=== PATIENT | female | born 1975 | race Caucasian/White ===

== ENCOUNTER → 2020-07-08 | Day surgery (SDC) | payer BC ==
[~2020-07-08] MED LIST: Bupivacaine 0.5% 30 ML SDV ONE; Lactated Ringers 1,000 ML IV SCH; Lidocaine 1% 4 ML ONE; Lidocaine 1% with EPINEPHrine 1:100,000 20 ML MDV ONE; Lidocaine 1%/Sod Bicarbonate in NS 8.4% 1 ML Syringe IDERM PRN; Midazolam 1 MG/ML 2 ML SDV ONE; Ondansetron 4 MG/2 ML SDV ONE; Propofol 200 MG/20 ML SDV ONE; Rocuronium 50 MG/5 ML Vial ONE; Sodium Chloride 0.9% 10 ML Syringe FLUSH PRN; Sodium Chloride 0.9% 50 ML SDV ONE; fentaNYL 250 MCG/5 ML SDV ONE
--- NOTE | 2020-07-08 07:47 | PCM.PREANE ---
Preanesthetic Assessment - Procedure Proposed Procedure: lap assisted vag hysterectomy with BSO - Anesthesia/Transfusion/Family Hx Anesthesia History: Prior Anesthesia Without Reaction Family History of Anesthesia Reaction: No Transfusion History: No Prior Transfusion(s) - Review of Systems General: No Symptoms Pulmonary: Wheezing (with allergies- singulair and prn albuteral) Cardiovascular: No Symptoms Gastrointestinal: No Symptoms Neurological: No Symptoms Other: Reports: Depression - Physical Assessment NPO Status Date: 07/07/20 NPO Status Time: 19:00 Vital Signs: 103 95% 98.0 20 Height: 5 ft 4 in Weight: 93 kg ASA Class: 2 Mental Status: Alert & Oriented x3 Airway Class: Mallampati = 1 Dentition: Reports: Normal Dentition Thyro-Mental Finger Breadths: 3 Mouth Opening Finger Breadths: 3 ROM/Head Extension: Full Lungs: Clear to Auscultation, Normal Respiratory Effort Cardiovascular: Regular Rate, Regular Rhythm - Allergies Allergies/Adverse Reactions: Allergies Allergy/AdvReac Type Severity Reaction Status Date / Time chlorhexidine Allergy Rash Verified 07/07/20 13:35 - Blood Blood Available: Yes - Acknowledgements Anesthesia Type Planned: General Anesthesia Pt an Appropriate Candidate for the Planned Anesthesia: Yes Alternatives and Risks of Anesthesia Discussed w Pt/Guardian: Yes Pt/Guardian Understands and Agrees with Anesthesia Plan: Yes PreAnesthesia Questionnaire HEENT History: Reports: Other (See Below) (wears glasses) Cardiovascular History: Reports: 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) Respiratory History: Reports: Other (See Below) (allergic rhinitis) Gastrointestinal History: Reports: None Psychiatric History: Reports: Depression Endocrine/Metabolic History: Reports: Obesity/BMI 30+ Oncologic (Cancer) History: Reports: Breast - Past Surgical History GI Surgical History: Reports: Other (See Below) (breast lumpectomy) Female Surgical History: Reports: Breast Reduction, Other (See Below) (nel cath) - SUBSTANCE USE Tobacco Use Status *Q: Former Tobacco User Tobacco Use Within Last Twelve Months: Cigarettes Second Hand Smoke Exposure: No Days Per Week of Alcohol Use: 0 Recreational Drug Use History: No - HOME MEDS Home Medications: Home Meds Albuterol Sulfate [Proventil Hfa] 2 puff INH Q4H PRN 07/07/20 [History] Calcium Carb/Vitamin D3/Vit K1 [Calcium + D Soft Chewable Tab] 1 tab PO DAILY 07/07/20 [History] Montelukast Sodium [Singulair] 10 mg PO DAILY 07/07/20 [History] Oxybutynin Chloride [Ditropan Xl] 10 mg PO DAILY 07/07/20 [History] Vits #93/Iron Fum/FA [ Formula Tablet] 1 tab PO DAILY 07/07/20 [History] Tamoxifen Citrate 20 mg PO DAILY 07/07/20 [History] Venlafaxine [Effexor] 75 mg PO BID 07/07/20 [History] buPROPion HCL [Wellbutrin Xl] 300 mg PO DAILY 07/07/20 [History] diphenhydrAMINE [Benadryl] 50 mg PO ASDIRECTED PRN 07/07/20 [History] - CURRENT (IN HOUSE) MEDS Current Meds: Current Medications Lactated Ringer's (Ringers, Lactated) 1,000 mls @ 125 mls/hr IV ASDIRECTED CARIDAD Stop: 07/08/20 23:00 Lidocaine/Sodium Bicarbonate (Buffered Lidocaine 1% In Ns 8.4%) 0.25 ml IDERM ONETIME PRN PRN Reason: Prior to IV Start Stop: 07/08/20 18:00 Sodium Chloride (Saline Flush) 10 ml FLUSH ASDIRECTED PRN PRN Reason: Keep Vein Open Stop: 07/08/20 18:00 Discontinued Medications Fentanyl (Sublimaze) Confirm Administered Dose 250 mcg .ROUTE .STK-MED ONE Stop: 07/08/20 06:57 Lidocaine HCl (Xylocaine-Mpf 1%) Confirm Administered Dose 4 mls @ as directed .ROUTE .STK-MED ONE Stop: 07/08/20 06:57 Midazolam HCl (Versed 1 Mg/Ml) Confirm Administered Dose 2 mg .ROUTE .STK-MED ONE Stop: 07/08/20 06:57 Ondansetron HCl (Zofran) Confirm Administered Dose 4 mg .ROUTE .STK-MED ONE Stop: 07/08/20 06:57 Propofol (Diprivan 20 Ml) Confirm Administered Dose 200 mg .ROUTE .STK-MED ONE Stop: 07/08/20 06:57 Rocuronium [place] (Zemuron) Confirm Administered Dose 50 mg .ROUTE .STK-MED ONE Stop: 07/08/20 06:57
== END ==
LOC: JD.SDS 07:41
PROVIDERS: ATTEND Obstetrics & Gynecology
DX: I10 Essential (primary) hypertension (principal); Z53.09 Procedure and treatment not carried out because of other contraindication; F32.9 Major depressive disorder, single episode, unspecified; E66.9 Obesity, unspecified; Z98.890 Other specified postprocedural states; Z79.899 Other long term (current) drug therapy; Z88.8 Allergy status to other drugs, medicaments and biological substances; Z87.891 Personal history of nicotine dependence; Z68.35 Body mass index [BMI] 35.0-35.9, adult
CPT/HCPCS: 36415; 80051; 85025; 86850; 86900; 86901; J2001; J2405; J3490; J2250; J2704; J3010

== ENCOUNTER 2020-09-04 07:27 | Day surgery (SDC) | payer BC ==
[2020-09-04] MEDS ORDERED: Lidocaine 1%/Sod Bicarbonate in NS 8.4% 1 ML Syringe IDERM PRN (07:53)
[2020-09-04] MEDS ORDERED: Sodium Chloride 0.9% 10 ML Syringe FLUSH PRN (07:53)
[2020-09-04] MEDS ORDERED: Lactated Ringers 1,000 ML IV SCH (08:00)
[2020-09-04] MEDS ORDERED: Bupivacaine 0.5% 30 ML SDV ONE (08:23)
[2020-09-04] MEDS ORDERED: Sodium Chloride 0.9% 50 ML SDV ONE (08:23)
[2020-09-04] MEDS ORDERED: Lidocaine 1% with EPINEPHrine 1:100,000 20 ML MDV ONE (08:23)
[2020-09-04] MEDS ORDERED: Ondansetron 4 MG/2 ML SDV IVPUSH PRN (08:51)
[2020-09-04] MEDS ORDERED: fentaNYL 100 MCG/2 ML SDV IVPUSH PRN (08:51)
[2020-09-04] MEDS ORDERED: HYDROmorphone 0.5 MG/0.5 ML Syringe IVPUSH PRN (08:51)
--- NOTE | 2020-09-04 08:51 | PCM.PREANE ---
Preanesthetic Assessment - Procedure Proposed Procedure: Vaginal Hysterectomy subfascial midurethral sling - Anesthesia/Transfusion/Family Hx Anesthesia History: Prior Anesthesia Without Reaction Family History of Anesthesia Reaction: No Transfusion History: No Prior Transfusion(s) - Review of Systems General: No Symptoms Pulmonary: Cough (Rhinitis/Allergies, denies SOB. Quit smoking 6 months ago. ) Cardiovascular: Other (Hypertension, controlled with Lisinopril. ) Gastrointestinal: No Symptoms Neurological: No Symptoms Other: Reports: None (NO BP or IV on the right side. Status post mastectomy with lymph node disection. History of chemotherapy. ), Depression - Physical Assessment NPO Status Date: 09/03/20 NPO Status Time: 23:00 Vital Signs: Last Vital Signs Temp 36.1 C 09/04/20 07:35 Pulse 100 09/04/20 07:45 Resp 16 09/04/20 07:35 BP 131/86 09/04/20 07:45 Pulse Ox 98 09/04/20 07:35 Height: 1.63 m Weight: 95.254 kg ASA Class: 2 Mental Status: Alert & Oriented x3 Airway Class: Mallampati = 2 Dentition: Reports: Normal Dentition Thyro-Mental Finger Breadths: 2 Mouth Opening Finger Breadths: 3 ROM/Head Extension: Full Lungs: Clear to Auscultation, Normal Respiratory Effort Cardiovascular: Regular Rate, Regular Rhythm - Allergies Allergies/Adverse Reactions: Allergies Allergy/AdvReac Type Severity Reaction Status Date / Time chlorhexidine Allergy Rash Verified 09/04/20 08:31 - Blood Blood Available: Yes Product(s) Available: PRBC (Type and Screen) - Anesthesia Plan Pre-Op Medication Ordered: Anxiolytic - Acknowledgements Anesthesia Type Planned: General Anesthesia Pt an Appropriate Candidate for the Planned Anesthesia: Yes Alternatives and Risks of Anesthesia Discussed w Pt/Guardian: Yes Pt/Guardian Understands and Agrees with Anesthesia Plan: Yes PreAnesthesia Questionnaire HEENT History: Reports: Other (See Below) (wears glasses) Cardiovascular History: Reports: 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) Respiratory History: Reports: Other (See Below) (allergic rhinitis) Gastrointestinal History: Reports: None Psychiatric History: Reports: Depression Endocrine/Metabolic History: Reports: Obesity/BMI 30+ Oncologic (Cancer) History: Reports: Breast - Past Surgical History GI Surgical History: Reports: Other (See Below) (breast lumpectomy) Female Surgical History: Reports: Breast Reduction, Other (See Below) (nel cath) - HOME MEDS Home Medications: Home Meds Albuterol Sulfate [Proventil Hfa] 2 puff INH Q4H PRN 07/07/20 [History] Calcium Carb/Vitamin D3/Vit K1 [Calcium + D Soft Chewable Tab] 1 tab PO DAILY 07/07/20 [History] Montelukast Sodium [Singulair] 10 mg PO DAILY 07/07/20 [History] Vits #93/Iron Fum/FA [ Formula Tablet] 1 tab PO DAILY 07/07/20 [History] Tamoxifen Citrate 20 mg PO DAILY 07/07/20 [History] Venlafaxine [Effexor] 75 mg PO BID 07/07/20 [History] buPROPion HCL [Wellbutrin Xl] 300 mg PO DAILY 07/07/20 [History] diphenhydrAMINE [Benadryl] 50 mg PO ASDIRECTED PRN 07/07/20 [History] lisinopriL [Lisinopril] 40 mg PO DAILY 09/04/20 [History] - CURRENT (IN HOUSE) MEDS Current Meds: Current Medications Lactated Ringer's (Ringers, Lactated) 1,000 mls @ 125 mls/hr IV ASDIRECTED CARIDAD Stop: 09/04/20 23:00 Last Admin: 09/04/20 08:10 Dose: 125 mls/hr Documented by: Lidocaine/Sodium Bicarbonate (Buffered Lidocaine 1% In Ns 8.4%) 0.25 ml IDERM ONETIME PRN PRN Reason: Prior to IV Start Stop: 09/04/20 18:00 Last Admin: 09/04/20 08:10 Dose: 0.25 ml Documented by: Sodium Chloride (Saline Flush) 10 ml FLUSH ASDIRECTED PRN PRN Reason: Keep Vein Open Stop: 09/04/20 18:00 Discontinued Medications Bupivacaine HCl (Marcaine 0.5%) Confirm Administered Dose 30 ml .ROUTE .STK-MED ONE Stop: 09/04/20 08:24 Lidocaine/Epinephrine (Xylocaine 1% With Epinephrine 1:100,000) Confirm Administered Dose 20 ml .ROUTE .STK-MED ONE Stop: 09/04/20 08:24 Sodium Chloride (Normal Saline) Confirm Administered Dose 50 ml .ROUTE .STK-[facility] ONE Stop: 09/04/20 08:24
[2020-09-04] MEDS ORDERED: ceFAZolin 1 GM Vial ONE (08:53)
[2020-09-04] MEDS ORDERED: Lactated Ringers 1,000 ML ONE (08:53)
[2020-09-04] MEDS ORDERED: Rocuronium 50 MG/5 ML Vial ONE (08:53)
[2020-09-04] MEDS ORDERED: Lidocaine 1% 4 ML ONE (08:53)
[2020-09-04] MEDS ORDERED: Ondansetron 4 MG/2 ML SDV ONE ×2 (08:53→09:22)
[2020-09-04] MEDS ORDERED: fentaNYL 250 MCG/5 ML SDV ONE (08:54)
[2020-09-04] MEDS ORDERED: Propofol 200 MG/20 ML SDV ONE ×2 (08:54→10:09)
[2020-09-04] MEDS ORDERED: Midazolam 1 MG/ML 2 ML SDV ONE (08:54)
[2020-09-04] MEDS ORDERED: Dexamethasone 4 MG/ML 5 ML MDV ONE (09:22)
[2020-09-04] MEDS ORDERED: Ketamine 500 mg/10 ML MDV ONE (09:46)
[2020-09-04] MEDS ORDERED: Albuterol 6.7 GM Inhaler INH ONE (10:51)
--- NOTE | 2020-09-04 11:01 | PCM.OPNOTE ---
- General Post-Op/Procedure Note Date of Surgery/Procedure: 09/04/20 Operative Procedure(s): Laparoscopic assisted vaginal hysterectomy with bilateral salpingo oophorectomy. Findings: Normal pelvic anatomy, small paratubal cyst Pre Op Diagnosis: breast cancer, menorrhagia, stress incontinence Post-Op Diagnosis: Same Anesthesia Technique: General ET Tube Primary Surgeon: Reyna Rincon Anesthesia Provider: Michelle Chaney Electrician: Juarez Vergara Pathology: uterus, tubes and ovaries Fluid Replacement, Intraop: 1,800 Output, Urine Amount: 75 EBL in mLs: 200 Complications: None Condition: Good Free Text/Narrative:: The risks, benefits, indications, potential complications, and alternatives were explained to the patient and informed consent obtained. The patient was taken to the Operating Room where general anesthesia was induced without complication. The patient was placed in dorsal lithotomy with Swapnil Stirrups and an exam under anesthesia revealed the findings detailed above. The patient was then prepped and draped in the usual sterile fashion. A sterile bivalve speculum was placed into the vagina and the anterior lip of the cervix was grasped with a single tooth tenaculum and a [employer] uterine manipulator was placed to allow uterine manipulation throughout the procedure. The speculum and single tooth tenaculum were removed from the vagina. A Egan catheter was placed in sterile fashion. Attention was then turned to the patients abdomen where a Veress needle was carefully introduced into the peritoneal cavity while tenting the abdominal wall. Intraperitoneal placement was confirmed by free flow of saline into the abdomen from a syringe open to gravity and with a low intraabdominal pressure with insufflation of C02 gas on low flow. The gas was increased to high flow and a pneumoperitoneum was obtained with C02 gas to a pressure of 15 mm Hg. A 5 mm skin incision was made in a vertical fashion in the umbilical fold and a 5 mm b eleonora trocar was inserted into the abdomen with direct visualization of the laparoscope through the clear view trocar lens. 5 mm skin incisions were made in both the left and right lower quadrants approximately 10 cm lateral and 3 cm inferior to the umbilicus. 5 mm blunt trocars were inserted into the abdomen under direct visualization with care to avoid the abdominal wall vasculature. A blunt probe and grasper were inserted through the accessory ports and a survey of the abdomen revealed the findings detailed above. The right fallopian tube was elevated with the blunt graspers at the fimbriated end. The right ureter was directly visualized and noted to be below the planned dissection area. The Ligasure was used to grasp, elevate, cauterize and transect uteroovarian and tube toward the uterus to the level of the round ligament. The round ligament on the right was then elevated, cauterized, and transected with the Ligasure. Hemostasis was noted. Next, the vesicouterine peritoneum was elevated gently with a blunt grasper and the ligasure were used dissect the vesicouterine peritoneum to make a bladder flap. Two more small bites along the right side of the uterus were made with the Ligasure to skeletonize the uterine artery. Hemostasis was noted. The exact same procedure was carried out on the left adnexa starting with grasping the left fallopian tube by the fimbriated end and identifying the left ureter position. Next, the Ligasure was used to grasp, cauterize, and transect utero ovarian and tube to the level of the round ligament. Next, the left round ligament was elevated, cauterized, and transected and a couple of additional small bites on the left side of the uterus were made to help skeletonize the left uterine artery. Hemostasis as noted. The CO2 gas was turned off and the laparoscope was removed. Attention was then turned to the vaginal portion of the procedure. A short weighted speculum was placed in the vagina, and the cervix was grasped with a double-toothed tenaculums. The cervix was injected circumferentially with 10 ml of 0.25% lidocaine with epinepherine. The cervix was then circumferentially incised with a scalpel. A Raytec was used to bluntly dissect the cervix circumferentially until an avascular plane was obtained. The posterior cul-de-sac was entered sharply without difficulty. The short weighted speculum was replaced by the long weighted speculum. The uterosacral ligaments were grasped on either side, transected, suture ligated on the left side. On the right this was carried out with ligasure. Hemostasis was assured. The bladder was dissected off the pubovesical cervical fascia anteriorly with a sponge and blunt dissection. Bites taken bilaterally with ligasure travelling superior on either side. The anteiror cul-de-sac was then entered sharply without difficulty. The cardinal ligaments were then serially clamped on both sides, transected ligated with ligasure in similar fashion. The uterine arteries were then clamped, transected and suture ligated on both sides with 0-Vicryl sutures. Hemostasis was then noted. The fundus and adnexa were confirmed to be free of any further peritoneal attachments and then were pulled out through the vagina. Posterior cuff run and locked with 0 vicryl. The vaginal cuff was closed with a 0-Vicryl in a running locked fashion. Hemostasis was noted. See Dr Vergara's note for mid urethral sling. Attention was then again turned to the abdomen. All members of the surgical team changed gloves. The laparoscope was again inserted and the abdomen was again insufflated with CO2. The pedicles were again visualized. Irrigation of the pedicles was performed.Hemostasis was confirmed. The patient was taken out of Trendelenberg position. The accessory trocars were removed under direct visualization. The pneumoperitoneum was allowed to escape. The umbilical trocar was removed and lastly the camera was removed from the abdomen under direct visualization to confirm no herniation into the port site. All skin incisions were re-approximated with 4-0 Monocryl and sealed with Dermabond. Hemostasis was noted. All sponge, lap, needle, and instrument counts were correct x 2. The patient tolerated the procedure well and there were no complications.
--- NOTE | 2020-09-04 11:01 | PCM.OPNOTE ---
- General Post-Op/Procedure Note Date of Surgery/Procedure: 09/04/20 Operative Procedure(s): Subfascial mid urethral sling Findings: Patient has a grade 1 cystocele, grade 1 uterine descensus and lateral vaginal wall relaxation. Patient underwent a laparoscopic-assisted vaginal hysterectomy with bilateral salpingo-oophorectomy for history of breast cancer-prophylactic removal of the ovaries. The bladder sling was done after the hysterectomy had been performed. Pre Op Diagnosis: 1. Stress urinary incontinence. 2. Grade 1 cystocele Post-Op Diagnosis: Same Anesthesia Technique: General ET Tube Other Anesthesia Type: Lidocaine quarter percent with [id number] cc total Primary Surgeon: Juarez Vergara Secondary Surgeon: Reyna Rincon Anesthesia Provider: Michelle Chaney Reason Traveling Accountant Was Necessary: Retraction, assistance, patient safety, quality of care. Drain/Tube Comments:: Red rubber catheter was used to empty the bladder before the procedure and then refill the bladder after the procedure. Complications: None Condition: Good Free Text/Narrative:: Procedure: The patient was taken the operating room and placed in supine position on the operating table. She was adequately consented for the procedure. She was scheduled for and underwent an LAVH with BSO prior to the TVT procedure. Dr. Rincon was primary surgery for that procedure. With that procedure the patient was given 2 g of Ancef preoperatively for infection prophylaxis and had sequential compression stockings in place for DVT prophylaxis. She had voided mason tender to the operating room. She was given general endotracheal anesthesia. She was placed in the dorsal lithotomy position. To the LAVH with BSO the patient's bladder was drained with a red rubber catheter. The 5 cc of normal urine were removed. The epithelium overlying the urethra was grasped approximately 1 cm from the urethral meatus and approximately 2 cm cephalad from there with Allis clamps. The area of the skin overlying the medial aspect of the obturator foramen on each side just posterior to the origin the abductor longus muscle was marked with a marking pen. These 2 areas and the sub-fascial layer of the vaginal were then infiltrated with lidocaine quarter percent with epinephrine total of approximately 10 mL was used. incisions made in the epithelium overlying the urethra and 2 small stab wounds 3 mm in length were made in the 2 areas of the panty line of the patient. The subfascial planes were adequately dissected bilaterally to allow placement of the mesh. The helical adapter was then placed through the obturator on patient's left side, then brought out through the vaginal subfascial plane. Mesh was attached to it and then was pulled back through the obturator foramen. Same was done on the right side. Mesh was then snugged up to the Dilator which was 15 mm in diameter which was was used as a spacer to place the mesh in a tension- free position. At this point the mesh was cut off at the skin surface and the dilator was removed. The midline epithelium was closed with a short running suture of 3-0 Monocryl. Skin incisions were closed with Dermabond skin glue. These bladder was filled with approximately 250 cc of normal saline to facilitate voiding and therefore discharge home. Dr. Rincon looked laparoscopically and after the LAVH with BSO procedure to ensure hemostasis. This was ensured. The patient was returned to supine position, awakened from general endotracheal anesthesia and was discharged from operating room in good condition
[2020-09-04] MEDS ORDERED: Ketorolac 15 MG/ML SDV ONE (11:11)
--- NOTE | 2020-09-04 11:16 | PCM.POSTAN ---
POST ANESTHESIA ASSESSMENT - MENTAL STATUS Mental Status: Alert, Oriented - VITAL SIGNS Vital Signs: Last Vital Signs Temp 36.1 C 09/04/20 11:05 Pulse 100 09/04/20 07:45 Resp 17 09/04/20 11:05 BP 157/113 H 09/04/20 11:05 Pulse Ox 100 09/04/20 11:05 - RESPIRATORY Respiratory Status: Respiratory Rate WNL, Airway Patent, O2 Saturation Stable, Supplemental Oxygen - CARDIOVASCULAR CV Status: Pulse Rate WNL, Blood Pressure Stable - GASTROINTESTINAL GI Status: No Symptoms - PAIN Pain Score: 0 - POST OP HYDRATION Hydration Status: Adequate & Stable
[2020-09-04] MEDS ORDERED: Acetaminophen/oxyCODONE 325-5 MG Tab PO PRN (12:14)
--- NOTE | 2020-09-04 14:24 | PCM48HPAN ---
Post Anesthesia Note - EVALUATION WITHIN 48HRS OF ANESTHETIC Vital Signs in Normal Range: Yes Patient Participated in Evaluation: Yes Respiratory Function Stable: Yes Airway Patent: Yes Cardiovascular Function Stable: Yes Hydration Status Stable: Yes Pain Control Satisfactory: Yes Nausea and Vomiting Control Satisfactory: Yes Mental Status Recovered: Yes Vital Signs: Last Vital Signs Temp 36.1 C 09/04/20 11:05 Pulse 113 H 09/04/20 14:05 Resp 18 09/04/20 14:05 BP 134/83 09/04/20 14:05 Pulse Ox 98 09/04/20 14:05
== END 2020-09-04 15:30 | disposition home or self-care (01) ==
LOC: JD.SDS 07:27
PROVIDERS: ATTEND Obstetrics & Gynecology
DX: D25.9 Leiomyoma of uterus, unspecified (principal); N84.0 Polyp of corpus uteri; N80.0 Endometriosis of uterus; N83.8 Other noninflammatory disorders of ovary, fallopian tube and broad ligament; C50.919 Malignant neoplasm of unspecified site of unspecified female breast; N39.3 Stress incontinence (female) (male); I10 Essential (primary) hypertension; J45.909 Unspecified asthma, uncomplicated; E66.9 Obesity, unspecified; Z01.812 Encounter for preprocedural laboratory examination; Z20.828 Contact with and (suspected) exposure to other viral communicable diseases; Z88.8 Allergy status to other drugs, medicaments and biological substances; Z79.899 Other long term (current) drug therapy; Z98.890 Other specified postprocedural states; Z87.891 Personal history of nicotine dependence; Z68.36 Body mass index [BMI] 36.0-36.9, adult
CPT/HCPCS: 36415; 58552; 86850; 86900; 86901; A9270; J0690; J1100; J1170; J1885; J2001; J2250; J2405; J2704; J3010; J3490; J7120; 00944; C1771

== ENCOUNTER 2020-09-05 18:26 | Emergency (ER) | payer BC ==
[2020-09-05] MEDS ORDERED: Acetaminophen/oxyCODONE 325-5 MG Tab PO ONE (19:29)
--- NOTE | 2020-09-05 21:01 | EDM.PDOC ---
ED HPI GENERAL MEDICAL PROBLEM - General Chief Complaint: Wound Recheck Stated Complaint: POST SURGERY COMPLICATIONS/FLUID DRAINING Time Seen by Provider: 09/05/20 18:33 Source of Information: Reports: Patient, RN Notes Reviewed History Limitations: Reports: No Limitations - History of Present Illness INITIAL COMMENTS - FREE TEXT/NARRATIVE: Patient is a 45-year-old female presenting to the emergency department with complaints of drainage from her surgical incision. She had surgery yesterday with Dr. Vergara and Dr. Curry. They had a Laparoscopic assisted vaginal hysterectomy with bilateral salpingectomy as well as a bladder sling for repair of a cystocele. Patient states that today she awoke from a nap and had significant serosanguineous drainage from her left lower laparoscopic incision. She spoke with Dr. Curry who recommended she come to the emergency department as there is concern that this could possibly be urine. Patient denies any increased pain. Other than the drainage, states she is doing quite well postop. Lower Abdomen Pain Score (Numeric/FACES): 2 - Related Data Allergies Allergy/AdvReac Type Severity Reaction Status Date / Time chlorhexidine Allergy Rash Verified 09/04/20 08:31 Home Meds: Home Meds Albuterol Sulfate [Proventil Hfa] 2 puff INH Q4H PRN 07/07/20 [History] Calcium Carb/Vitamin D3/Vit K1 [Calcium + D Soft Chewable Tab] 1 tab PO DAILY 07/07/20 [History] Montelukast Sodium [Singulair] 10 mg PO DAILY 07/07/20 [History] Vits #93/Iron Fum/FA [ Formula Tablet] 1 tab PO DAILY 07/07/20 [History] Tamoxifen Citrate 20 mg PO DAILY 07/07/20 [History] Venlafaxine [Effexor] 75 mg PO BID 07/07/20 [History] buPROPion HCL [Wellbutrin Xl] 300 mg PO DAILY 07/07/20 [History] diphenhydrAMINE [Benadryl] 50 mg PO ASDIRECTED PRN 07/07/20 [History] lisinopriL [Lisinopril] 40 mg PO DAILY 09/04/20 [History] Past Medical History HEENT History: Reports: Other (See Below) Cardiovascular History: Reports: Heart Murmur Respiratory History: Reports: Other (See Below) Gastrointestinal History: Reports: None 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 History: Reports: Other (See Below) Other 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 History: hysterectomy, bladder sling Psychiatric History: Reports: Depression Endocrine/Metabolic History: Reports: Obesity/BMI 30+ Oncologic (Cancer) History: Reports: Breast - Past Surgical History GI Surgical History: Reports: Other (See Below) Female Surgical History: Reports: Breast Reduction, Other (See Below) Other Female Surgeries/Procedures: lumpectomy, port placement Social & Family History - Tobacco Use Tobacco Use Status *Q: Never Tobacco User Second Hand Smoke Exposure: No - Caffeine Use Caffeine Use: Reports: None - Recreational Drug Use Recreational Drug Use: No ED ROS GENERAL - Review of Systems Review Of Systems: See Below Constitutional: Reports: No Symptoms. Denies: Fever, Chills, Weakness HEENT: Reports: No Symptoms Respiratory: Reports: No Symptoms Cardiovascular: Reports: No Symptoms Endocrine: Reports: No Symptoms GI/Abdominal: Reports: Abdominal Pain, Other (drainage from LLQ abdominal incision). Denies: Diarrhea, Nausea, Vomiting ED EXAM, GENERAL - Physical Exam Exam: See Below Exam Limited By: No Limitations General Appearance: Alert, WD/WN, No Apparent Distress Respiratory/Chest: No Respiratory Distress, Lungs Clear, Normal Breath Sounds, No Accessory Muscle Use, Chest Non-Tender Cardiovascular: Normal Peripheral Pulses, Regular Rate, Rhythm, No Edema, No Gallop, No JVD, No Murmur, No Rub GI/Abdominal: Normal Bowel Sounds, Soft, Non-Tender, No Organomegaly, No Distention, No Abnormal Bruit, No Mass, Pelvis Stable, Other (3 laproscopic surgical incisions to abdomen. Incision to LLQ is open and draininge a moderate amount of serosanguinous fliud. Remaining incisions to the umbilicus and RLQ well approximated. ) Neurological: Alert, Oriented, CN II-XII Intact, Normal Cognition, Normal Gait, Normal Reflexes, No Motor/Sensory Deficits Psychiatric: Normal Affect, Normal Mood Skin Exam: Warm, Dry, Intact, Normal Color, No Rash Course - Vital Signs Last Recorded V/S: Last Vital Signs Temp 96.9 F 09/05/20 18:34 Pulse Resp 16 09/05/20 18:34 BP 117/78 09/05/20 18:34 Pulse Ox - Orders/Labs/Meds Labs: Laboratory Tests 09/05/20 09/05/20 09/05/20 Range/Units 18:45 18:45 20:27 Urine Color Yellow (Yellow) Urine Appearance Clear (Clear) Urine pH 6.0 (5.0-8.0) Ur Specific [place] 1.020 (1.005-1.030) Urine Protein Negative (Negative) Urine Glucose (UA) Negative (Negative) Urine Ketones Negative (Negative) Urine Occult Blood 2+ H (Negative) Urine Nitrite Negative (Negative) Urine Bilirubin Negative (Negative) Urine Urobilinogen 0.2 (0.2-1.0) Ur Leukocyte Esterase Trace H (Negative) Urine RBC 0-5 (0-5) /hpf Urine WBC 5-10 H (0-5) /hpf Ur Squamous Epith Cells 5-10 H (0-5) /hpf Urine Bacteria Few (FEW) /hpf Urine Mucus Few (FEW) /hpf Ur Random Creatinine 104.4 < 13.0 L (30.0-125.0) mg/dL Meds: Medications Discontinued Medications Generic Name Dose Route Start Last Admin Trade Name Freq PRN Reason Stop Dose Admin Oxycodone/Acetaminophen 1 tab 09/05/20 19:29 09/05/20 19:34 Percocet 325-5 Mg PO 09/05/20 19:30 1 tab ONETIME ONE Administration - Re-Assessments/Exams Free Text/Narrative Re-Assessment/Exam: Patient is a 45-year-old female presenting to the emergency department with complaints of serosanguineous drainage from her left lower laparoscopic incision after having a laparoscopic assisted vaginal hysterectomy as well as bladder sling done yesterday with Dr. Vergara and Dr. Curry. Patient spoke with Dr. West Klein prior to coming to the ER and states that there was some concern that this could be urine. Called and spoke with Dr. Vergara, who is the on-call 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. He recommended that we order a urinalysis with urine creatinine as well as attempt to collect a sample of the fluid draining from the incision site and run a urine creatinine on this as well. He also requests a abdominal ultrasound to be completed. I have applied a U bag to the draining incision site to attempt to collect the fluid. Patient has voided for us. I will order a abdominal ultrasound. plan will be to update Dr. Vergara once results are available. 09/05/20 21:23 Urinalysis was significant for 2+ occult blood, trace leukocyte esterase, 5-10 WBCs, and 5-10 squamous epithelial cells. It is likely that this is contamina tion. I have sent it for a urine culture. Random urine creatinine off of her clean-catch urine sample was 104.4. Urine creatinine off the drainage from the surgical site is less than 13 again this is not urine draining from the incision site. Impression of the transabdominal ultrasound is as follows 1. Small amount of free fluid in the pelvis, quantity top limits of normal. This may or may not be physiologic. 2. Scanning over the left lower quadrant revealed a tiny subcutaneous anechoic collection 1 x 3 mm and a 5.6 x 0.6 cm fluid collection in the deeper soft tissues. This fluid is nonspecific in etiology. Called and discussed results with Dr. Vergara. He recommends discharge home and for her to take it easy for the next few days. He would like her to follow-up in the clinic next week. We will apply dressing to the draining incision site and send her home with additional gauze. Discharge instructions as documented. Departure - Departure Time of Disposition: 21:24 Disposition: Home, Self-Care 01 Condition: Good Clinical Impression: Encounter for postoperative wound check - Discharge Information *PRESCRIPTION DRUG MONITORING PROGRAM REVIEWED*: No *COPY OF PRESCRIPTION DRUG MONITORING REPORT IN PATIENT HEMA: No Referrals: Rivka Harper MD [Primary Care Provider] - Juarez Vergara MD [Physician] - Forms: ED Department Discharge Additional Instructions: You were seen in the emergency department this evening with concerns regarding drainage from your left lower surgical incision. Work-up included urinalysis, urine creatinine, fluid creatinine of the drainage from your surgical site, and an abdominal ultrasound. Results of this work-up indicate that the fluid jun ining from your surgical site is not urine. This is serosanguineous fluid which is not abnormal to have drainage after surgery. There was no abnormalities visualized on your ultrasound. Consulted with Dr. Vergara. He recommends that you go home and rest for the next few days. Continue to use pain management as previously prescribed. He would like you to call Monday morning does have a follow-up appointment next week with him. If you should experience any new or worsening symptoms of concern, please not hesitate to return to the emergency department for reevaluation. Sepsis Event Note (ED) - Evaluation Sepsis Screening Result: No Definite Risk
--- NOTE | 2020-09-06 08:59 | US ---
Pelvic ultrasound: Multiple real-time images of the pelvis were obtained transabdominally. Findings: Previous hysterectomy is noted. Right ovary is also not visualized. Left ovary is not seen. There is a small amount of free fluid being seen within the pelvis. Small amount of fluid is seen next to the incision site. These findings are felt to be within normal limits at this time. Impression: 1. Superficial fluid in the area of previous incision as well as a small amount of fluid within the pelvis. These findings are most likely due to previous surgery. If patient remains symptomatic, recommend repeat study in 24-48 hours. 2. Uterus and ovaries are not visualized. Diagnostic code #2 I agree with preliminary report from ad, finalized on 09/05/20, 9:57 PM BUSINESS ADMINISTRATOR
== END 2020-09-05 21:30 | disposition home or self-care (01) ==
LOC: JD.ED 18:26
DX: Z48.817 Encounter for surgical aftercare following surgery on the skin and subcutaneous tissue (principal); F32.9 Major depressive disorder, single episode, unspecified; E66.9 Obesity, unspecified; Z68.36 Body mass index [BMI] 36.0-36.9, adult; Z90.710 Acquired absence of both cervix and uterus; Z98.890 Other specified postprocedural states; Z88.8 Allergy status to other drugs, medicaments and biological substances; Z79.899 Other long term (current) drug therapy
CPT/HCPCS: 76856; 81001; 82570; 87086; 99284; A9270; 99283

== ENCOUNTER 2020-09-07 08:03 | Emergency (ER) | payer BC ==
--- NOTE | 2020-09-07 08:49 | EDM.PDOC ---
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 She states that 3 days ago she had vaginal hysterectomy with a bladder lift. States that 2 days ago she presented to the emergency department with abdominal distention and leaking from one of her laparoscopic puncture sites. Ultrasound was completed which showed minimal fluid, and Dr. Vergara was consulted and recommended that she return home and rest. Patient now presenting to the ER with complaints of increased abdominal pain and distention. Denies nausea, vomiting, diarrhea. States she did have a bowel movement this morning however it was small. Denies fever or chills. Has been taking p.o. fluids however her appetite has been poor. Onset: Gradual Bilateral Middle Abdominal Pain Score (Numeric/FACES): 7 - Related Data Allergies Allergy/AdvReac Type Severity Reaction Status Date / Time chlorhexidine Allergy Rash Verified 09/04/20 08:31 Home Meds: Home Meds Albuterol Sulfate [Proventil Hfa] 2 puff INH Q4H PRN 07/07/20 [History] Calcium Carb/Vitamin D3/Vit K1 [Calcium + D Soft Chewable Tab] 1 tab PO DAILY 07/07/20 [History] Montelukast Sodium [Singulair] 10 mg PO DAILY 07/07/20 [History] Vits #93/Iron Fum/FA [ Formula Tablet] 1 tab PO DAILY 07/07/20 [History] Tamoxifen Citrate 20 mg PO DAILY 07/07/20 [History] Venlafaxine [Effexor] 75 mg PO BID 07/07/20 [History] buPROPion HCL [Wellbutrin Xl] 300 mg PO DAILY 07/07/20 [History] diphenhydrAMINE [Benadryl] 50 mg PO ASDIRECTED PRN 07/07/20 [History] lisinopriL [Lisinopril] 40 mg PO DAILY 09/04/20 [History] Past Medical History HEENT History: Reports: Other (See Below) Cardiovascular History: Reports: Heart Murmur Respiratory History: Reports: Other (See Below) Gastrointestinal History: Reports: None BIOANALYST History: Reports: Other (See Below) Other BIOANALYST History: hysterectomy, bladder sling Psychiatric History: Reports: Depression Endocrine/Metabolic History: Reports: Obesity/BMI 30+ Oncologic (Cancer) History: Reports: Breast - Infectious Disease History Infectious Disease History: Reports: Chicken Pox - Past Surgical History GI Surgical History: Reports: Other (See Below) Female Surgical History: Reports: Breast Reduction, Hysterectomy, Other (See Below) Other Female Surgeries/Procedures: lumpectomy, port placement Social & Family History - Family History Family Medical History: No Pertinent Family History - Tobacco Use Tobacco Use Status *Q: Former Tobacco User Used Tobacco, but Quit: Yes Month/Year Tobacco Last Used: 2014 - Caffeine Use Caffeine Use: Reports: Coffee - Recreational Drug Use Recreational Drug Use: No ED ROS GENERAL - Review of Systems Review Of Systems: See Below Constitutional: Reports: Malaise, Decreased Appetite. Denies: Fever, Chills, Fatigue HEENT: Reports: Glasses Respiratory: Denies: Shortness of Breath, Wheezing, Cough Cardiovascular: Reports: No Symptoms Endocrine: Reports: No Symptoms GI/Abdominal: Reports: Abdominal Pain, Constipation, Decreased Appetite, Distension, Flatus. Denies: Black Stool, Bloody Stool, Melena, Nausea, Vomiting : Reports: No Symptoms. Denies: Dysuria, Flank Pain Musculoskeletal: Reports: No Symptoms Skin: Reports: No Symptoms Neurological: Reports: No Symptoms Psychiatric: Reports: No Symptoms Hematologic/Lymphatic: Reports: No Symptoms Immunologic: Reports: No Symptoms ED EXAM, GI/ABD - Physical Exam Exam: See Below Exam Limited By: No Limitations General Appearance: Alert, WD/WN, Mild Distress Ears: Normal External Exam, Hearing Grossly Normal Nose: Normal Inspection Throat/Mouth: Normal Inspection, Normal Lips, Normal Voice, No Airway Compromise Head: Atraumatic, Normocephalic Neck: Normal Inspection, Supple, Non-Tender, Full Range of Motion Respiratory/Chest: No Respiratory Distress, Lungs Clear, Normal Breath Sounds, No Accessory Muscle Use, Chest Non-Tender Cardiovascular: Normal Peripheral Pulses, Regular Rate, Rhythm, No Edema, No Murmur GI/Abdominal Exam: Normal Bowel Sounds, Distended, Tender (with palpation) (Female) Exam: Deferred Rectal (Female) Exam: Deferred Back Exam: Normal Inspection, Full Range of Motion Extremities: Normal Inspection, Normal Range of Motion, Non-Tender, No Pedal Edema, Normal Capillary Refill Neurological: Alert, Oriented, Normal Cognition, Normal Gait Psychiatric: Normal Affect, Normal Mood Skin Exam: Wound/Incision (small amount of bloody drainage to left lower quadrant abdominal laproscopic puncture site) Lymphatic: No Adenopathy Course - Vital Signs Text/Narrative:: 45-year-old female with complaints of abdominal pain. Presents to the emergency department 3 days postop total hysterectomy with a bladder lift. Presented to the ER 1 day postop with complaints of laparoscopic surgical site to left lower abdomen leaking and abdominal pain. Patient returns today with complaints of abdominal distention, tenderness, and overall feeling worse. Patient denies fever, chills, nausea, vomiting, diarrhea. She states that she did have a bowel movement this morning but it was small. Has been taking oxycodone about every 6 hours and did take a docusate today as well. Reports taking p.o. fluids a dequately but has had a decreased appetite and only eats some broth yesterday. She denies any dysuria however states she is going more frequently in smaller amounts. Abdomen is tender in all quadrants with palpation. I have ordered a CBC, CMP, magnesium, CRP and a CT of the abdomen and pelvis. I have also ordered a urinalysis. Patient will receive 1 L normal saline bolus as she is slightly tachycardic at 106-108 and likely dehydrated. Last Recorded V/S: Last Vital Signs Temp 96.7 F L 09/07/20 08:21 Pulse 108 H 09/07/20 08:21 Resp 20 09/07/20 08:21 BP 109/78 09/07/20 08:21 Pulse Ox 100 09/07/20 08:21 - Orders/Labs/Meds Orders: Active Orders 24 hr Category Date Time Status Bladder Scan [RC] ASDIRECTED Care 09/07/20 11:09 Active Insert Urinary Catheter [OM.PC] Stat Care 09/07/20 13:01 Ordered Urinary Catheter Assessment [RC] ASDIRECTED Care 09/07/20 13:02 Ordered Sodium Chloride 0.9% [Saline Flush] Med 09/07/20 09:29 Active 10 ml FLUSH ONETIME PRN Medication Orders Sodium Chloride (Saline Flush) 10 ml FLUSH ONETIME PRN PRN Reason: IV FLUSH Last Admin: 09/07/20 10:24 Dose: 10 ml Documented by: STAN Labs: Laboratory Tests 09/07/20 09/07/20 09/07/20 Range/Units 08:50 11:33 11:33 WBC 8.69 (3.98-10.04) K/mm3 RBC 4.66 (3.98-5.22) M/mm3 Hgb 13.9 (11.2-15.7) gm/dl Hct 42.5 (34.1-44.9) % MCV 91.2 (79.4-94.8) fl MCH 29.8 (25.6-32.2) pg MCHC 32.7 (32.2-35.5) g/dl RDW Std Deviation 43.0 (36.4-46.3) fL Plt Count 267 (182-369) K/mm3 MPV 9.2 L (9.4-12.3) fl Neut % (Auto) 71.1 (34.0-71.1) % Lymph % (Auto) 19.1 L (19.3-51.7) % Ocean % (Auto) 9.3 (4.7-12.5) % Eos % (Auto) 0.3 L (0.7-5.8) Baso % (Auto) 0.1 (0.1-1.2) % Neut # (Auto) 6.17 H (1.56-6.13) K/mm3 Lymph # (Auto) 1.66 (1.18-3.74) K/mm3 Ocean # (Auto) 0.81 H (0.24-0.36) K/mm3 Eos # (Auto) 0.03 L (0.04-0.36) K/mm3 Baso # (Auto) 0.01 (0.01-0.08) K/mm3 Sodium 136 (136-145) mEq/L Potassium 3.9 (3.5-5.1) mEq/L Chloride 99 (98-107) mEq/L Carbon Dioxide 25 (21-32) mEq/L Anion Gap 15.9 H (5-15) BUN 16 (7-18) mg/dL Creatinine 1.3 H (0.55-1.02) mg/dL Est Cr Clr Drug Dosing 46.20 mL/min Estimated GFR (MDRD) 44 (>60) mL/min BUN/Creatinine Ratio 12.3 L (14-18) Glucose 87 (74-106) mg/dL Calcium 9.1 (8.5-10.1) mg/dL Magnesium 1.8 (1.8-2.4) mg/dl Total Bilirubin 0.7 (0.2-1.0) mg/dL AST 21 (15-37) U/L ALT 25 (14-59) U/L Alkaline Phosphatase 46 (46-116) U/L C-Reactive Protein 7.4 H* (<1.0) mg/dL Total Protein 6.9 (6.4-8.2) g/dl Albumin 3.4 (3.4-5.0) g/dl Globulin 3.5 gm/dL Albumin/Globulin Ratio 1.0 (1-2) Urine Color Yellow (Yellow) Urine Appearance Clear (Clear) Urine pH 6.0 (5.0-8.0) Ur Specific [place] 1.025 (1.005-1.030) Urine Protein Negative (Negative) Urine Glucose (UA) Negative (Negative) Urine Ketones 3+ H (Negative) Urine Occult Blood 2+ H (Negative) Urine Nitrite Negative (Negative) Urine Bilirubin 1+ H (Negative) Urine Urobilinogen 0.2 (0.2-1.0) Ur Leukocyte Esterase Negative (Negative) Urine RBC 10-20 H (0-5) /hpf Urine WBC 0-5 (0-5) /hpf Ur Epithelial Cells 5-10 H (0-5) /hpf Urine Bacteria Rare (FEW) /hpf Urine Mucus Few (FEW) /hpf Meds: Medications Generic Name Dose Route Start Last Admin Trade Name Freq PRN Reason Stop Dose Admin Sodium Chloride 10 ml 09/07/20 09:29 09/07/20 10:24 Saline Flush FLUSH 10 ml ONETIME PRN Administration IV FLUSH Discontinued Medications Generic Name Dose Route Start Last Admin Trade Name Freq PRN Reason Stop Dose Admin Diatrizoate Meglum/Diatrizoate Sod 120 ml 09/07/20 09:29 09/07/20 10:24 Gastrografin 37% PO 09/07/20 09:30 45 ml ONETIME ONE Administration Hydromorphone HCl 0.5 mg 09/07/20 10:51 09/07/20 11:01 Dilaudid IVPUSH 09/07/20 10:52 0.5 mg ONETIME ONE Administration Sodium Chloride 1,000 mls @ 999 mls/hr 09/07/20 08:52 09/07/20 10:36 Normal Saline IV 09/07/20 09:52 999 mls/hr ONETIME ONE Administration Iopamidol 100 ml 09/07/20 09:29 09/07/20 10:24 Isovue-300 (61%) IVPUSH 09/07/20 09:30 100 ml ONETIME ONE Administration Ondansetron HCl 4 mg 09/07/20 10:51 09/07/20 11:01 Zofran IVPUSH 09/07/20 10:52 4 mg ONETIME ONE Administration - Radiology Interpretation Free Text/Narrative:: CT of abdomen and pelvis pression: 1. Mild amount of fluid around the liver with fluid extending along the paracolic gutter into the pelvis. This fluid has simple Hounsfield unit measurements. 2. Increased density within the subcutaneous fat, worse on the left side. No definite fluid collections are seen. 3. Urine filled dilated bladder, please correlate that patient is able to void. CT Results Date: 09/07/20 CT Results Time: 10:50 - Re-Assessments/Exams Free Text/Narrative Re-Assessment/Exam: 09/07/20 11:17 Patient had voided prior to CT scan. I have asked nursing staff to BladderScan the patient. 09/07/20 11:17 Complaining of abdominal pain. I will order Dilaudid 0.5 mg IV and Zofran 4 mg IV. 09/07/20 12:59 Was straight cathed for over 1000 mL of urine. Patient reports feeling much better after. She states much less pressure and pain in her abdomen. I consulted Dr. Vergara via phone regarding the patient as he was the surgeon who performed her hysterectomy. I reviewed the CT of the abdomen and pelvis, all lab work with Dr. Vergara. He recommends the patient be sent home with a Egan catheter in place to follow-up at the clinic with him tomorrow to have the catheter removed. Departure - Departure Time of Disposition: 13:03 Disposition: Home, Self-Care 01 Condition: Good Clinical Impression: Urinary retention with incomplete bladder emptying - Discharge Information Referrals: Rivka Harper MD [Primary Care Provider] - Juarez Vergara MD [Physician] - Forms: ED Department Discharge Additional Instructions: You were seen in the emergency department with complaints of abdominal pain. Lab work was unremarkable for infection. CT of the abdomen and pelvis did show some fluid around the liver extending along the paracolic gutter into the pelvis. Dr. Vergara is aware of the CT report. Urinalysis was unremarkable for infection. You did have over 1000 mL of urine in your bladder after attempting to void. A straight cath was placed which did drain over 1000 mL of urine. After consult with Dr. Vergara he recommends we place a Egan catheter and send you home and you are to follow-up with him at the clinic tomorrow. He will then remove the catheter at that time. Should your condition worsen or change please return to the emergency department. Sepsis Event Note (ED) - Evaluation Sepsis Screening Result: No Definite Risk - Focused Exam Vital Signs: Vital Signs Temp Pulse Resp BP Pulse Ox 09/07/20 08:21 96.7 F L 108 H 20 109/78 100 - My Orders Last 24 Hours: My Active Orders 09/07/20 09:29 Sodium Chloride 0.9% [Saline Flush] 10 ml FLUSH ONETIME PRN 09/07/20 11:09 Bladder Scan [RC] ASDIRECTED 09/07/20 13:01 Insert Urinary Catheter [OM.PC] Stat 09/07/20 13:02 Urinary Catheter Assessment [RC] ASDIRECTED - Assessment/Plan Last 24 Hours: My Active Orders 09/07/20 09:29 Sodium Chloride 0.9% [Saline Flush] 10 ml FLUSH ONETIME PRN 09/07/20 11:09 Bladder Scan [RC] ASDIRECTED 09/07/20 13:01 Insert Urinary Catheter [OM.PC] Stat 09/07/20 13:02 Urinary Catheter Assessment [RC] ASDIRECTED
[2020-09-07] MEDS ORDERED: Sodium Chloride 0.9% 1,000 ML IV ONE (08:52)
[2020-09-07] MEDS ORDERED: Iopamidol 612 MG/ML 100 ML Bottle IVPUSH ONE (09:29)
[2020-09-07] MEDS ORDERED: Diatrizoate Meglumine/Diatrizoate Sodium 37% 120 ML Bottle PO ONE (09:29)
[2020-09-07] MEDS ORDERED: Sodium Chloride 0.9% 10 ML Syringe FLUSH PRN (09:29)
[2020-09-07] MEDS ORDERED: HYDROmorphone 0.5 MG/0.5 ML Syringe IVPUSH ONE (10:51)
[2020-09-07] MEDS ORDERED: Ondansetron 4 MG/2 ML SDV IVPUSH ONE (10:51)
--- NOTE | 2020-09-07 11:00 | CT ---
CT abdomen and pelvis Technique: Multiple axial sections were obtained from above the dome of the diaphragm inferiorly through the pubic symphysis. Intravenous contrast was utilized. No oral contrast was given. Delayed images were also obtained through the abdomen and pelvis. Comparison: No prior CT abdomen/pelvis exam is available, previous pelvic ultrasound dated 09/05/2020 . Findings: Visualized lung bases show nothing acute. Small low density lesion is between the right and left lobes of the liver close to the dome. This measures about 4.5 mm and most likely represents a small cyst. Spleen appears normal. There is fluid being seen off the inferior liver as well as extending slightly cephalad. This fluid extends inferiorly along the paracolic gutter into the pelvis. Fluid appears simple in its Hounsfield unit measurement at this time. Adrenal glands show no nodule. Small area of accessory spleen is seen medial to the spleen. Kidneys show symmetric contrast enhancement. Delayed images shows contrast excretion into both ureters as well as into the bladder. Bladder is somewhat dilated. Aorta shows no aneurysm. No retroperitoneal adenopathy is seen. No pelvic mass or adenopathy is appreciated. There is increased density seen within the subcutaneous fat on both sides, worse on the left side. No definite fluid collections are seen within the abdomen. Bone window settings were reviewed which show slight degenerative change scattered within the spine. There is no definite acute osseous finding being identified. Impression: 1. Mild amount of fluid around the liver with fluid extending along the paracolic gutter into the pelvis. This fluid has simple Hounsfield unit measurements. 2. Increased density within the subcutaneous fat, worse on the left side. No definite fluid collections are seen. 3. Urine filled dilated bladder, please correlate that patient is able to void. Diagnostic code #3
== END 2020-09-07 13:45 | disposition home or self-care (01) ==
LOC: JD.ED 08:03
DX: R33.9 Retention of urine, unspecified (principal); E66.9 Obesity, unspecified; F32.9 Major depressive disorder, single episode, unspecified; Z68.36 Body mass index [BMI] 36.0-36.9, adult; Z88.8 Allergy status to other drugs, medicaments and biological substances; Z90.710 Acquired absence of both cervix and uterus; Z87.891 Personal history of nicotine dependence; Z79.899 Other long term (current) drug therapy
CPT/HCPCS: 36415; 51701; 51798; 74177; 80053; 81001; 83735; 85025; 86140; 96374; 96375; 99284; J1170; J2405; J7030; Q9963; Q9967

== ENCOUNTER 2022-02-26 05:40 | Inpatient (IN) | payer BC, OTHER ==
[2022-02-26] MEDS ORDERED: Lactated Ringers 1,000 ML IV ONE (06:01)
[2022-02-26] MEDS ORDERED: Morphine 4 MG/ML Syringe IVPUSH ONE (06:11)
[2022-02-26] MEDS ORDERED: Ondansetron 4 MG/2 ML SDV IVPUSH ONE (06:11)
[2022-02-26] MEDS ORDERED: HYDROmorphone 0.5 MG/0.5 ML Syringe IVPUSH ONE (09:37)
[2022-02-26] MEDS ORDERED: Albuterol 6.7 GM Inhaler INH PRN (10:59)
[2022-02-26] MEDS: Lactated Ringers 1,000 ML IV SCH ×2 (11:20→16:47)
[2022-02-26] MEDS ORDERED: Ketorolac 15 MG/ML SDV IVPUSH ONE (17:51)
[2022-02-26] MEDS ORDERED: Diatrizoate Meglumine/Diatrizoate Sodium 37% 120 ML Bottle NGTUBE ONE (17:51)
[2022-02-26] MEDS ORDERED: Lactated Ringers 1,000 ML IV SCH (18:00)
[2022-02-27 06:46] LABS: ESTIMATED GFR > 60 mL/min (>60)
[2022-02-27] MEDS: Acetaminophen 325 MG Tab PO SCH ×2 (08:50→14:30)
[2022-02-27] MEDS: Ketorolac 15 MG/ML SDV IVPUSH SCH ×2 (08:58→14:30)
[2022-02-27] MEDS ORDERED: buPROPion 150 MG Tab.ER PO SCH (09:00)
[2022-02-27] MEDS ORDERED: Losartan 100 MG Tab PO SCH (09:00)
[2022-02-27] MEDS ORDERED: Venlafaxine 37.5 MG Tab PO SCH (09:00)
[2022-02-27] MEDS ORDERED: Montelukast 10 MG Tab PO SCH (09:00)
[2022-02-27] MEDS ORDERED: TAMOXIFEN CITRATE 20 MG PO SCH (21:00)
== END 2022-02-27 18:25 | disposition home or self-care (01) | DRG 390 ==
LOC: JD.ED 05:40 → JD.MS 10:43
PROVIDERS: ADMIT Surgery; ATTEND Surgery
PROC: 0D9670Z Drainage of Stomach with Drainage Device, Via Natural or Artificial Opening (ICD-10-PCS; principal; 2022-02-26)
DX: K56.609 Unspecified intestinal obstruction, unspecified as to partial versus complete obstruction (principal); K56.41 Fecal impaction; F32.A Depression, unspecified; E66.9 Obesity, unspecified; Z20.822 Contact with and (suspected) exposure to COVID-19; K43.2 Incisional hernia without obstruction or gangrene; Z90.710 Acquired absence of both cervix and uterus; Z88.1 Allergy status to other antibiotic agents; Z68.36 Body mass index [BMI] 36.0-36.9, adult
CPT/HCPCS: 36410; 36415; 71045; 71045-26; 74018; 74018-26; 74176; 74176-26; 76937; 80048; 80053; 81001; 83605; 83690; 85025; A9270-GY; J1170; J1885; J2270; J2405; J7120; Q9963; U0002

== ENCOUNTER 2022-03-29 09:00 | Day surgery (SDC) | payer OTHER ==
[~2022-03-29 09:00] MED LIST changes: -Bupivacaine 0.5% 30 ML SDV ONE; -Lidocaine 1% 4 ML ONE; -Lidocaine 1% with EPINEPHrine 1:100,000 20 ML MDV ONE; -Midazolam 1 MG/ML 2 ML SDV ONE; -Ondansetron 4 MG/2 ML SDV ONE; -Propofol 200 MG/20 ML SDV ONE; -Rocuronium 50 MG/5 ML Vial ONE; +Sodium Chloride 0.9% 10 ML Syringe FLUSH SCH; -Sodium Chloride 0.9% 50 ML SDV ONE; -fentaNYL 250 MCG/5 ML SDV ONE
[2022-03-29] MEDS ORDERED: Lidocaine 1% 5 ML VIAL ONE (09:02)
[2022-03-29] MEDS ORDERED: Midazolam 1 MG/ML 2 ML SDV ONE (09:50)
[2022-03-29] MEDS ORDERED: fentaNYL 100 MCG/2 ML SDV ONE (09:50)
[2022-03-29] MEDS ORDERED: Propofol 200 MG/20 ML SDV ONE ×2 (09:50→10:13)
== END 2022-03-29 11:17 | disposition home or self-care (01) ==
LOC: JD.SDS 09:00
PROVIDERS: ATTEND Surgery
DX: K56.600 Partial intestinal obstruction, unspecified as to cause (principal); K64.8 Other hemorrhoids; J45.909 Unspecified asthma, uncomplicated; N30.90 Cystitis, unspecified without hematuria; F32.A Depression, unspecified; I10 Essential (primary) hypertension; N39.3 Stress incontinence (female) (male); E66.9 Obesity, unspecified; Z79.51 Long term (current) use of inhaled steroids; Z79.899 Other long term (current) drug therapy; Z85.3 Personal history of malignant neoplasm of breast; Z90.710 Acquired absence of both cervix and uterus; Z98.890 Other specified postprocedural states; Z87.891 Personal history of nicotine dependence; Z88.2 Allergy status to sulfonamides; Z68.36 Body mass index [BMI] 36.0-36.9, adult
CPT/HCPCS: 45378; J2250; J2704; J3010; J7120; 00811